=== PATIENT | female | born 1990 | race Caucasian/White ===

== ENCOUNTER 2018-08-03 08:23 | Inpatient (IN) ==
[2018-08-04] MEDS ORDERED: DESYREL PO PRN (11:13)
[2018-08-04] MEDS ORDERED: MAALOX PLUS LIQUID PO PRN (11:13)
[2018-08-04] MEDS ORDERED: NICOTINE GUM BUCCAL PRN (11:13)
[2018-08-04] MEDS ORDERED: MOTRIN PO PRN (11:13)
[2018-08-04] MEDS ORDERED: SENOKOT PO PRN (11:13)
[2018-08-04] MEDS ORDERED: ZOFRAN IV PRN (11:13)
[2018-08-04] MEDS ORDERED: TUBERSOL ID ONE (11:13)
[2018-08-04] MEDS ORDERED: DULCOLAX PR PRN (11:13)
[2018-08-04] MEDS ORDERED: D5W 1,000 ML IV PRN (11:13)
[2018-08-04] MEDS ORDERED: PHENOBARBITAL IV PRN (11:13)
[2018-08-04] MEDS ORDERED: TYLENOL PO PRN (11:13)
[2018-08-04] MEDS ORDERED: ZOFRAN IM PRN (11:13)
[2018-08-04] MEDS ORDERED: NICODERM PATCH TD PRN (11:13)
[2018-08-04] MEDS ORDERED: IMODIUM PO PRN ×2 (11:13)
[2018-08-04 11:55] LABS: URINE SOURCE CLEAN CATCH
[2018-08-04 12:01] LABS: BILIRUBIN URINE NEGATIVE (NEGATIVE); BLOOD URINE 1+ (NEGATIVE); CLARITY CLEAR (CLEAR); COLOR AMBER; GLUCOSE URINE NEGATIVE (NEGATIVE); KETONE URINE TRACE mg/dL (NEGATIVE); LEUKOCYTES URINE TRACE (NEGATIVE); NITRITE URINE NEGATIVE (NEGATIVE); PH URINE 6.5; SP GRAVITY URINE 1.015; UROBILINOGEN URINE 4 mg/dL
[2018-08-04] MEDS ORDERED: ROBAXIN PO PRN (12:02)
[2018-08-04] MEDS ORDERED: SALINE LOCK IV FLUID XX ONE (12:02)
[2018-08-04] MEDS ORDERED: BENTYL PO PRN (12:02)
[2018-08-04] MEDS ORDERED: ATIVAN IV ONE ×2 (12:03→13:24)
[2018-08-04 12:11] LABS: URINE EPITHELIAL CELLS >10 /HPF (<10); URINE RBC <10 /HPF (<10); URINE WBC <10 /HPF (<10)
[2018-08-04 12:17] LABS: AMYLASE 61 U/L (20-200); LIPASE 26 U/L (13-60)
[2018-08-04] MEDS ORDERED: M.V.I.-12 10 ML, FOLIC ACID 1 MG, MAGNESIUM SULFATE 1 GM, THIAMINE 100 MG in NS 1,000 ML IV ONE (13:00)
[2018-08-04 13:10] LABS: UR AMPHETAMINES QUAL NONE DETECTED (NONE DETECT); UR BARBITUATES QUAL NONE DETECTED (NONE DETECT); UR BENZODIAZEPIN QUAL NONE DETECTED (NONE DETECT); UR CANNABINOIDS QUAL NONE DETECTED (NONE DETECT); UR COCAINE QUAL NONE DETECTED (NONE DETECT); UR METHADONE QUAL NONE DETECTED (NONE DETECT); UR METHAMPHETAMINE QUAL NONE DETECTED (NONE DETECT); UR OPIATES QUAL NONE DETECTED (NONE DETECT); UR OXYCODONE QUAL NONE DETECTED (NONE DETECT); UR PCP QUAL NONE DETECTED (NONE DETECT); UR PROPOXYPHENE QUAL NONE DETECTED (NONE DETECT); UR TCA QUAL NONE DETECTED (NONE DETECT)
[2018-08-04] MEDS: LIBRIUM PO SCH ×3 (13:37→23:39)
[2018-08-04 21:56] LABS: BASO# 0.01 X1000 (0.0-0.2); BASO% 0.7 % (0.0-0.8); EOS# 0.03 X1000 (0.0-0.7); EOS% 2.1 % (0.0-10.0); HEMATOCRIT 32.4 % (37.0-47.0); LYMPH# 0.75 X1000 (1.2-3.4); LYMPH% 51.7 % (20.5-51.1); MCH 32.6 PG (27-31); MCV 96.1 FL (81-99); MONO% 13.8 % (1.7-9.3); NEUT% 31.7 % (42.2-75.2); RBC 3.37 XMIL (4.2-5.4); WBC 1.45 X1000 (4.8-10.8)
[2018-08-04 21:58] LABS: NEUT# 0.46 X1000 (1.4-6.5)
[2018-08-04 22:01] LABS: AGAP 10; BUN 5 mg/dL (8-22); CALCIUM 8.9 mg/dL (8.8-10.2); CHLORIDE 98 mmol/L (98-107); COSMO 274; CREATININE 0.6 mg/dL (0.5-0.9); ESTIMATED GFR > 60; GLUCOSE 87 mg/dL (70-104); POTASSIUM 3.1 mmol/L (3.5-5.1); SODIUM 139 mmol/L (136-145); TCO2 31 mmol/L (25-35)
[2018-08-04 23:30] LABS: LYMPHS 50 % (21-51); MONO 10 % (1-9); SEGS 40 % (42-75)
[2018-08-04 23:34] LABS: INR 0.99; PROTIME 13.6 Seconds (11.0-16.0)
[2018-08-04 23:39] LABS: PLT 28 X1000 (130-400)
[2018-08-05] MEDS: PROTONIX PO SCH ×2 (05:55→06:00)
[2018-08-05] MEDS: LIBRIUM PO SCH ×3 (05:55→18:26)
--- NOTE | 2018-08-05 06:58 | HISTORY AND PHYSICAL ---
CHIEF COMPLAINT: Nausea and vomiting. HISTORY OF PRESENT ILLNESS: Patient is a 27-year-old female who presented to [facility] program secondary to nausea, vomiting, abdominal pain, and visible tremors. States she has been drinking heavily for the past 2 years. She has been unable to stop due to her withdrawal symptoms. SOCIAL HISTORY: Patient is single. She is unemployed. Lives at home in [place]. PAST MEDICAL HISTORY: 1. History of seizures, history of blackouts Most likely, her seizures are alcohol withdrawal-related. 2. Frequent urinary infections. 3. Chronic anxiety and depression. FAMILY HISTORY: Noncontributory. ALLERGIES: No known drug allergies. MEDICATIONS: No prescription medications. REVIEW OF SYSTEMS: CIWA score is 25 secondary to nausea, vomiting, visible tremors with her arms at rest, insomnia, diaphoresis, anxiety, fidgety, unable to sit still, frequently moving about, history of alcohol withdrawal seizures as well as frequent blackouts due to alcoholism. Has history of visual hallucinations when she stops drinking. Denies any current chest pains or palpitations. Denies any dysuria, frequency, urgency, polyuria, or polydipsia. Has a large deep bruise on her left elbow from a recent fall. Denies blurred vision, change in vision, focalized numbness, tingling or weakness. Shortness of breath, chest pain, or palpitations. SUBSTANCE ABUSE HISTORY: The patient was in detox in [place] for 6 days in 2014, relapsed fairly quickly. She has been attempting to get to a therapist for her mental health and alcohol. She has gone twice this year but has not remained sober. She started drinking at age 16. Currently drinks at least a pint a day and typically 5 shots in addition to that. Started marijuana at age 26, currently uses occasionally. PHYSICAL EXAMINATION: VITAL SIGNS: Reviewed and stable. GENERAL: Patient is awake, alert. She is in no current respiratory distress. HEENT: Normocephalic. NECK: Supple. CARDIOVASCULAR: Regular rate. No murmurs. CHEST: Clear, nonlabored. ABDOMEN: Soft, nondistended, nontender. EXTREMITIES: Moves all extremities. NEUROLOGIC: No focal changes. SKIN: Warm, dry. No rashes. LABORATORY DATA: Pending. ASSESSMENT: 1. Nausea, vomiting and abdominal pain. 2. Myalgias. 3. Paresthesias. 4. Paroxysmal sweating. 5. Opiate abuse withdrawal and alcohol withdrawal. Admit for stabilization. 6. Alcoholic hallucinosis. 7. Tremors. 8. Seizures related to alcohol. 9. Blackouts related to alcohol. PLAN: We will admit patient to the hospital and begin counseling, place her on high-dose Librium taper. Due to her withdrawal, currently we will give her 1 mg of Ativan IV. May repeat if necessary. We will continue to follow. cc: Bony Coyle MD [facility]
[2018-08-05] MEDS: FOLIC ACID PO SCH (08:39)
[2018-08-05] MEDS: THERA M PLUS PO SCH (08:39)
[2018-08-05] MEDS: VITAMIN B-1 PO SCH (08:40)
[2018-08-05] MEDS: ZOFRAN ODT PO PRN (08:48)
[2018-08-05] MEDS: ATARAX PO PRN (10:45)
--- NOTE | 2018-08-05 18:14 | PROGRESS NOTE ---
DATE: 08/05/2018 SUBJECTIVE: The patient notes that she has no complaints. States she is still very weak and fatigued. States her tremors are improving. Denies any myalgias. Denies any dysuria or frequency. Denies constipation. Denies any fevers, chills, cough, or congestion. PHYSICAL EXAMINATION: Vital Signs: Reviewed and stable. Temperature 97.2 degrees, pulse 75, respiratory rate 18, BP 115/78. General: She is awake and alert. She is in no current respiratory distress. The patient is pleasant to talk with. She is still very weak visibly. She is not having any tremors currently. HEENT: Normocephalic. Neck: Supple. CARDIOVASCULAR: Regular rate. No murmurs. Chest: Clear, nonlabored. Abdomen: Soft, nondistended. Extremities: Moves all extremities although generalized weakness. Neurologic: No focal changes. ASSESSMENT: 1. Leukopenia with absolute neutropenia. 2. Thrombocytopenia. 3. Mild anemia. 4. Hypokalemia. 5. Tremors. 6. Fatigue. 7. Myalgias. 8. Alcohol abuse withdrawal and stabilization. PLAN: The patient states that she has been told in the past that her blood cells were very low. 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 She was asked to follow up in the past with Oncology but never did. We will continue to follow this in the hospital. Will recheck in the a.m. If it continues to be low, we will begin treatment. Again discussed with her the importance of following up with Hematology as an outpatient as well as stopping drinking. cc: Bony Coyle MD
[2018-08-05] MEDS: SEROQUEL PO PRN (21:31)
[2018-08-06] MEDS: LIBRIUM PO SCH ×4 (00:06→18:19)
[2018-08-06] MEDS: PROTONIX PO SCH (06:23)
[2018-08-06 09:38] LABS: AGAP 10; ALBUMIN 3.5 g/dL (3.5-5.0); ALKALINE PHOSPHATASE 103 U/L (32-104); BUN 5 mg/dL (8-22); CALCIUM 8.9 mg/dL (8.8-10.2); CHLORIDE 101 mmol/L (98-107); COSMO 277; CREATININE 0.7 mg/dL (0.5-0.9); ESTIMATED GFR > 60; GLUCOSE 109 mg/dL (70-104); GOT 107 U/L (10-30); GPT 59 U/L (10-36); POTASSIUM 3.6 mmol/L (3.5-5.1); SODIUM 140 mmol/L (136-145); TCO2 30 mmol/L (25-35); TOTAL PROTEIN 6.5 g/dL (6.3-8.3)
[2018-08-06] MEDS: FOLIC ACID PO SCH (09:48)
[2018-08-06] MEDS: VITAMIN B-1 PO SCH (09:48)
[2018-08-06] MEDS: THERA M PLUS PO SCH (09:48)
[2018-08-06 09:58] LABS: BASO# 0.02 X1000 (0.0-0.2); BASO% 1.2 % (0.0-0.8); EOS# 0.07 X1000 (0.0-0.7); EOS% 4.2 % (0.0-10.0); HEMATOCRIT 31.8 % (37.0-47.0); HEMOGLOBIN 10.7 g/dL (12.0-16.0); LYMPH# 0.57 X1000 (1.2-3.4); LYMPH% 34.5 % (20.5-51.1); MCH 32.1 PG (27-31); MCHC 33.6 g/dL (33-37); MCV 95.5 FL (81-99); MONO# 0.23 X1000 (0.11-0.59); MONO% 13.9 % (1.7-9.3); MPV 11.1 FL (7.4-10.4); NEUT# 0.76 X1000 (1.4-6.5); NEUT% 46.2 % (42.2-75.2); RBC 3.33 XMIL (4.2-5.4); RDW 11.4 % (11.5-14.5); WBC 1.65 X1000 (4.8-10.8)
[2018-08-06 10:04] LABS: PLT 30 X1000 (130-400)
[2018-08-06] MEDS: ATARAX PO PRN (11:35)
[2018-08-06] MEDS: SEROQUEL PO PRN (20:22)
[2018-08-06] MEDS: ZOFRAN ODT PO PRN (20:22)
[2018-08-07] MEDS: LIBRIUM PO SCH ×2 (00:01→06:26)
[2018-08-07] MEDS: PROTONIX PO SCH (06:26)
[2018-08-07 08:14] VITALS: BP 133/92
[2018-08-07] MEDS: THERA M PLUS PO SCH (08:29)
[2018-08-07] MEDS: VITAMIN B-1 PO SCH (08:29)
[2018-08-07] MEDS: FOLIC ACID PO SCH (08:29)
--- NOTE | 2018-08-07 11:22 | PROGRESS NOTE ---
DATE: 08/06/2018 SUBJECTIVE: Patient notes overall she is feeling a little bit better. She is actually eating breakfast this morning. She is having less shaking and jittery spells. She was able to get to the restroom yesterday on her own. PHYSICAL EXAMINATION: Vital Signs: Temperature 97.8, pulse 65, respiratory 20, and BP 126/86. General: Patient is awake and alert. She is in no current respiratory distress. Very pleasant to talk with sitting on the side of the bed eating breakfast. HEENT: Normocephalic. Neck: Supple. CARDIOVASCULAR: Regular rate. No murmurs. Chest: Clear and nonlabored. Abdomen: Soft. Nondistended. Nontender. Extremities: Moves all extremities. Neurologic: No focal changes. She has no current tremors although she is generally weak, but no focal weakness. ASSESSMENT: 1. Leukopenia. Her absolute neutrophil count has increased to greater than 500 still with a white count at 1.4. 2. Thrombocytopenia. 3. Hypokalemia. 4. Anemia. 5. Tremors resolved. 6. Myalgias. 7. Generalized weakness. 8. Chronic alcoholism and withdrawal. We will continue to attempt stabilization. PLAN: Discussed with patient the importance of stopping drinking. Discussed that she has significant bone marrow suppression as she has been told in the past due to her alcoholism. Discussed that she needs to continue to find ways to stop drinking. We will continue to follow. cc: Bony Coyle MD
[2018-08-07] MEDS ORDERED: LIBRIUM PO SCH (13:00)
--- NOTE | 2018-08-08 20:36 | DISCHARGE SUMMARY ---
ADMISSION DATE: 08/04/2018 DISCHARGE DATE: 08/07/2018 DISCHARGE DIAGNOSES: 1. Nausea, vomiting. 2. Abdominal pain. 3. Myalgias. 4. Paresthesias. 5. Paroxysmal sweating. 6. Tremors. 7. Alcohol abuse, withdrawal and stabilization. 8. Leukopenia. 9. Thrombocytopenia. CONSULTATIONS: None. PROCEDURE: None. BRIEF HOSPITAL COURSE: The patient is a 27-year-old female who presented to [facility] program secondary to nausea, vomiting, abdominal pain, and tremors. She notes that she has a long history of abusing alcohol, has been trying to stop, but her withdrawal symptoms had become too severe. She has had issues with blacking out secondary to alcohol. Upon initial workup, she was noted to be pancytopenic. Her platelet count was low at 28, and WBCs at 1.4. After initial discussion with Ms. Kitchen, she notes that she has been told that her counts were low before. Thankfully, she had an uneventful hospital course. She was placed on high-dose Librium taper which she tolerated very well. On discharge, she is awake, alert. She has been able to wean down to 3 times a day Librium and will continue to wean this at home. DISPOSITION: The patient has no signs or symptoms of infection. She will be discharged home. Discussed with her that she needs to follow up with her primary care or with Hematology in the next few weeks to recheck her labs. Discussed with her that hopefully this is all from bone marrow suppression due to her alcoholism and if that is the case, then her tests will continue to improve as she stops drinking. However, she may end up requiring bone marrow biopsy and other workups. The patient states she understands and will follow up. Discussed the perils of continuing to drink as well as ways to stop. She will be discharged home with naltrexone and a 5 day Librium taper. cc: Bony Coyle MD
== END 2018-08-07 11:09 | disposition home or self-care (01) | DRG 897 ==
LOC: MERGE 08-04 10:40 → P.MEDSURG 08-04 10:40
PROVIDERS: ADMIT Family Medicine; ATTEND Family Medicine
CPT/HCPCS: 80048; 80053; 80104; 80301; 80305; 80307; 80320; 81001; 82055; 82150; 83690; 84703; 85025; 85610; 86580; A9270; G0431; G0434; G0477; G0480; G6040; J2060; J2405; J3411; J3475; J7030